=== PATIENT | female | born 1970 | race Caucasian/White ===

== ENCOUNTER → 2025-01-25 15:37 | Outpatient (REF) | payer BC, SELFPAY | LOC: RAD 15:37 | PROVIDERS: ATTENDING PHYSICIAN Surgery Vascular Surgery; FAMILY PHYSICIAN Family Medicine | DX: I65.23 Occlusion and stenosis of bilateral carotid arteries (principal) | CPT/HCPCS: 70496; 70498; Q9967 ==

== ENCOUNTER 2025-07-10 08:30 | Inpatient (IN) | payer BC, SELFPAY ==
[2025-07-07 16:47] VITALS: BP 205/91
[2025-07-07 17:09] LABS: Hematocrit 42.3 % (37.0-47.0); Hemoglobin 13.9 g/dL (12.0-16.0); Mean Corp Hgb Conc. 32.9 g/dL (33.0-37.0); Mean Corpuscular Volume 82.3 fL (81.0-99.0); Nucleated Red Blood Cells % 0 %; Platelet Count 321 10^3/uL (130-400); Red Cell Dist. Width 17.4 % (11.5-14.5)
--- NOTE | 2025-07-07 17:18 | ED.GENMED ---
History of Present Illness
General
Chief Complaint: Abdominal Symptoms
Time Seen by Provider: 07/07/25 17:13
Nursing documentation reviewed up to this point in time: agreed with
History of Present Illness
History of Present Illness:
54-year-old female presents to the ER for evaluation of vomiting for the past 48 hours. Patient reports feeling generally unwell. She reports decreased urine output. She denies abdominal pain per se. She states that she was advised to decrease
her use of Mounjaro-last dose was last Thursday, as she had labs by her primary care physician this week showing mild elevation in her lipase. Patient denies fevers or chills. No cough or cold symptoms. She does have a prior history of abdominal
surgery including appendectomy and cholecystectomy. She denies any syncope or trauma. She denies chest pain. She reports that she previously had prolonged QT while hospitalized. She states that she had Zofran at home to take but believes it was
, no significant improvement in her symptoms with this medication.
Past History
Past History
ED Past Medical History: Cancer (Thyroid), Hypercholesterolemia, NIDDM and Hypothyroidism
ED Past Surgical History: Appendectomy, Cholecystectomy and Other (Thyroidectomy)
Social History
Tobacco: Non-smoker
Drug: None
Review of Systems
Review of Systems
Allergies reviewed?: Yes
Phy Exam
Physical Exam
Physical Exam:
Patient is awake, alert, appears in no acute distress, head is NCAT, PERRL, EOMI mucous membranes tacky, conjunctiva pink, heart regular rate and rhythm without murmurs or ectopy, lungs are clear to auscultation without wheezes rales or rhonchi, no
JVD, abdomen is soft, obese, and nontender on palpation, wearing insulin pump in left lower quadrant, extremities without edema, GCS is 15 bilateral lower extremities are examined with 2+ DP pulses present, she has a punctate wound on the plantar
aspect of the right third toe, no surrounding erythema, no foot swelling noted. She has an ulceration on the plantar aspect of digit #3 on the left with scant serous drainage, toe is not swollen, foot is not swollen, no proximal streaking
Course
Orders/Labs/Results
Orders:
Orders
07/07/25 17:00
B-Hydroxybutyrate Urgent
Complete Blood Count/With Diff Urgent
Comprehensive Metabolic Panel Urgent
Lactic Acid Urgent
Lipase Urgent
07/07/25 17:32
Electrocardiogram (*1) Urgent
Reason for Study: Abdominal Pain
CT Abd/pelvis W Iv Cont Urgent
Comment:
Reason For Exam: nausea, abdominal pain
0.9% Sodium Chloride 1000 ml [Nss] 1,000 ml IV BOLUS
07/07/25 17:33
EKG- Treatment ONCE
07/07/25 17:48
Venous Blood Gas Urgent
%Oxygen/Room Air: 100
07/07/25 18:09
diazePAM [Valium Injection] 5 mg IV NOW STA
07/07/25 18:27
Urinalysis Reflex To Culture Urgent
Date Specimen was Collected: 07/07/25
Time Specimen was Collected: 18:24
Urine Microscopic Reflex Cult Urgent
07/07/25 19:03
Promethazine [Phenergan] 25 mg 0.9% Sodium Chloride 50 ml [Nss] 50 ml IV NOW
07/07/25 20:28
Insulin Aspart Pen [Novolog Flexpen] 5 units SC NOW STA
07/07/25 20:30
Blood Culture Q30M
NAEL Source: Blood/Venous
Specimen Description:
07/07/25 21:00
Blood Culture Q30M
NAEL Source: Blood/Venous
Specimen Description:
Abnormal Lab Results
07/07/25 07/07/25 07/07/25
17:00 17:48 18:27
WBC 22.1 H 10^3/uL
(4.8-10.8)
MCHC 32.9 L g/dL
(33.0-37.0)
RDW 17.4 H %
(11.5-14.5)
MPV 10.5 H fL
(7.4-10.4)
Abs Immat Gran (auto) 0.3 H 10^3/uL
(0-0.05)
Absolute Neuts (auto) 18.5 H 10^3/uL
(1.4-6.5)
Absolute Monos (auto) 1.2 H 10^3/uL
(0.1-0.6)
Immature Gran % 1.1 H %
(0-0.5)
Neutrophils % 83.7 H %
(42.2-75.2)
Lymphocytes % 9.3 L %
(20.5-51.1)
VBG pH 7.47 H
(7.32-7.43)
VBG pO2 52 H mmHg
(30-50)
VBG HCO3 29.8 H mmol/L
(22-27)
BUN 22 H mg/dl
(7-17)
Glucose 180 H mg/dl
(70-99)
AST 45 H U/L
(14-36)
ALT 49 H U/L
(0-35)
Total Protein 8.5 H g/dl
(6.3-8.2)
Lipase 360 H U/L
(23-300)
Urine Ketones 2+ A
(Negative)
Ur Occult Blood Reflex 1+ A
(Negative)
Urine Bacteria (Reflex) Few A
(Negative)
Urine Glucose 4+ A
(Negative)
Urine Albumin (Reflex) 3+ A
(Neg - Trace)
B-Hydroxybutyrate 0.77 H mmol/L
(0.02-0.27)
07/07/25 17:00
07/07/25 17:00
White blood count elevated at 22,000, glucose elevated at 180, CO2 is normal, BUN slightly elevated at 22, lipase just above normal at 360
Vital Signs
Initial and Last Documented VS:
Initial Vital Signs
Temp Pulse Resp BP Pulse Ox
97.7 F 91 20 205/91 96
07/07/25 16:47 07/07/25 16:47 07/07/25 16:47 07/07/25 16:47 07/07/25 16:47
Last Documented Vital Signs
Temp Pulse Resp BP Pulse Ox
97.7 F 95 16 177/71 100
07/07/25 16:47 07/07/25 17:57 07/07/25 17:57 07/07/25 19:06 07/07/25 17:57
MDM/Problems Addressed
Differential Diagnosis Includes:
Differential diagnosis to consider but not limited to acute pancreatitis, gastroenteritis, gastritis, along with other etiologies considered
Chronic conditions affecting care:
Insulin-dependent diabetes, GERD, anemia
*Pulse Oximetry
SaO2: 96
Oxygen Mode of Delivery: Room air
Patient hypoxic: no
*EKG
Interpreted by ED Provider?: Yes (I independently viewed and interpreted twelve-lead EKG showing normal sinus rhythm with sinus arrhythmia, rate 93, leftward axis, QT measured prolonged at 502 ms, no ST elevation, this is an abnormal tracing without
evidence for acute ischemia)
*Switchgear Repairer Interpretation
Rate: normal (I independently viewed interpreted rhythm strip from normal sinus rhythm, no ectopy)
*Critical Care Note
Total Time (30-74mins, 75-104mins- exclusive of procedures): Not Applicable
Update Note
Update Note:
Patient has a history of prolonged QT. Will obtain EKG prior to dosing antiemetic. IV fluids ordered. Patient presents at current.
Patient had minimal improvement in her nausea with Valium administration. She was given IV Phenergan. Blood count elevated. Kidney function preserved. CO2 normal, patient does not appear to be in acute DKA. CT abdomen pelvis pending. Given
intractable vomiting, patient will require admission regardless. I reviewed full patient presentation with hospitalist who accepts patient for admission.
ED Attending Note
-
Portions of this chart may have been created with voice recognition software.� Occasional wrong word or��sound alike� substitutions may have occurred due to the inherent limitations of voice recognition software.
Discharge Plan
Departure
Patient Disposition: Admit
Date of Disposition: 07/07/25
Time of Disposition: 20:33
Presentation/result/management discussed w/ accepting MD/DO: Hospitalist
Discharge Problem:
Intractable nausea and vomiting, Insulin dependent diabetes mellitus
Prescriptions:
No Action
methotrexate sodium 2.5 MG tablet
7.5 mg PO WE
pantoprazole 40 MG tablet,delayed release (DR/EC)
40 mg PO DAILY
metformin 1,000 MG tablet
1,000 mg PO BID
folic acid 1 MG tablet
1 mg PO DAILY
lisinopril-hydrochlorothiazide 1 EACH tablet
1 tab PO DAILY
levothyroxine 137 mcg Tablet
137 mcg PO DAILY
insulin aspart U-100 [Novolog U-100 Insulin aspart] 100 unit/mL Solution
1 sliding scale dose SC DIRECTED
Patient Comments:
pt has insulin pump
metoprolol succinate 25 mg Tablet Extended Release 24 Hr
25 mg PO DAILY
rosuvastatin [Crestor] 40 mg Tablet
40 mg PO QPM
Januvia
1 tab PO DAILY
Referrals:
Gianfranco Jones MD [Family Provider, Family Practice]
Interventions
Interventions:
*Risk Screen - Suicide Last Done: 07/07/25 16:49
*General Assessment Last Done: 07/07/25 16:49
*Neglect/Abuse Screening Last Done: 07/07/25 17:52
*ED COVID-19 Vaccine History Last Done: 07/07/25 17:52
*ED Influenza Vaccine History Last Done: 07/07/25 17:52
YC-Stkuga-Kvmknnyuys Assessment Last Done: 07/07/25 17:59
Discharge Date and Time
Print Language: NORTHERN IRISH
[2025-07-07 17:28] LABS: ALT (SGPT) 49 U/L (0-35); AST (SGOT) 45 U/L (14-36); Albumin 5.0 g/dl (3.5-5.0); Alkaline Phosphatase 72 U/L (38-126); Blood Urea Nitrogen 22 mg/dl (7-17); Calcium 9.0 mg/dl (8.4-10.2); Carbon Dioxide 27 mmol/L (22-30); Chloride 98 mmol/L (98-107); Glucose 180 mg/dl (70-99); Lipase 360 U/L (23-300); Potassium 3.7 mmol/L (3.5-5.1); Sodium 137 mmol/L (135-145); Total Protein 8.5 g/dl (6.3-8.2); eGFR > 60.00
[2025-07-07 17:43] VITALS: BMI 31.2
[2025-07-07] MEDS: NSS 1000 IV ×2 (17:49→22:49)
[2025-07-07 17:55] LABS: Venous Blood Gas B.E. 5.6 mmol/L (-4 to +4); Venous Blood Gas O2 Sat % 87.4 %
[2025-07-07 17:56] LABS: Venous Blood Gas O2 Therapy %Oxygen/Room Air 100
[2025-07-07 17:57] VITALS: BP 201/67
[2025-07-07] MEDS: VALIUM INJECTION 5 MG IV (18:29)
--- NOTE | 2025-07-07 18:48 | EDRN ---
Pt complains of 3 days of nausea and vomiting that has progressively gotten worse. No ill contacts. Pt has an insulin pump and says she has not been taking any of her medications except for the insulin the past few days. Pt has not been able to
eat, reports her blood sugars have been 'good.' Pt's last dose mounjaro was Thursday. She says her doctor decreased her dose because her lipase level was elevated. Pt does not think her symptoms are related to mounjaro. No cp, sob, abd pain,
fever/chills/cough, dizziness, weakness. Pt has felt generally unwell and notes decreased urine output but no burning/pain with urination.
[2025-07-07 18:59] LABS: Urine Character Clear (Clear)
[2025-07-07 19:06] VITALS: BP 177/71
--- NOTE | 2025-07-07 19:09 | EDRN ---
Called pharmacy for phenergan
[2025-07-07] MEDS: PHENERGAN 51 MG IV (19:32)
[2025-07-07 19:35] LABS: Urine Red Blood Cell 0-2 /HPF (0-2); Urine Squamous Cell 21-25 /LPF (Few)
--- NOTE | 2025-07-07 20:20 | HPS.HSE ---
Family Physician
-
Family Physician: Gianfranco Jones
Chief Complaint
-
nausea and vomiting
History of Present Illness
Patient is a 54-year-old female with past medical history significant for CAD, hyperlipidemia, Rheumatoid arthritis, IDDM, GERD and Hx thyroid cancer who presented to [facility] ED for evaluation of nausea and vomiting. Patient reports nausea and vomiting
have been persistent for approximately 48 hours. She reports having fluctuating chills and sweats yesterday but never measured temperature. Patient has insulin pump that has been functioning appropriately and states sugars have been stable at home.
Denies any cough, shortness of breath, chest pain, constipation, diarrhea or urinary symptoms.
Medical History
Past Medical History
Past Medical History: Reports Other
Additional Past Medical History:
CAD
Rheumatoid arthritis
IDDM
Hyperlipidemia
thyroid cancer
gastroesophageal reflux disease (GERD)
Lowry's esophagus
Past Surgical History: Reports Other
Additional Past Surgical History:
cholecystectomy
thyroidectomy
Laparscopic appendectomy (Dr. Bellamy) 04/19/2021
right knee arthroscopy
breast reduction
lap pelvic cyst
right thigh vein ablation 09/2020
cardiac stent x2 07/2022
cardiac cath 1 week ago
Social History
Tobacco: Former Smoker (quit in 2009)
Alcohol: Occasional
Drug: Marijuana (gummies nightly for sleep and will occasionally smoke )
Living: With Family
Employment: Not Employed
Family History
Family History: Not pertinent
Allergies / Home Medications
Allergies reflects when Allergies were last updated in [facility].
Home Medications with original date entered in [facility]
Allergy/Medication List:
Allergies
Allergy/AdvReac Type Severity Reaction Status Date / Time
Cephalosporins Allergy Hives Verified 07/07/25 16:51
latex Allergy Hives Verified 07/07/25 16:51
Penicillins Allergy Hives Verified 07/07/25 16:51
Home Medications
folic acid 1 mg tablet 1 mg PO DAILY Supplement 04/19/21
metformin 1,000 mg tablet 1,000 mg PO BID Diabetes 04/19/21
methotrexate sodium 2.5 mg tablet 7.5 mg PO WE@0800,1700 04/19/21
pantoprazole 40 mg tablet,delayed release 40 mg PO DAILY Gastrointestinal Issue 04/19/21
Patient Own Insulin Pump 1 sliding scale dose SC .VIA NOVOLOG Diabetes 07/07/25
aspirin 81 mg tablet,delayed release 81 mg PO DAILY Blood Clot Prevention/Tx 07/07/25
duloxetine 30 mg capsule,delayed release 30 mg PO DAILY Mental Health/Anxiety 07/07/25
empagliflozin 10 mg tablet (Jardiance) 10 mg PO DAILY Diabetes 07/07/25
levothyroxine 137 mcg tablet 137 mcg PO DAILY Thyroid 07/07/25
losartan 50 mg-hydrochlorothiazide 12.5 mg tablet 1 tab PO DAILY Blood Pressure 07/07/25
metoprolol succinate 25 mg tablet,extended release 24 hr 25 mg PO DAILY Heart Disease/Condition 07/07/25
rosuvastatin 40 mg tablet (Crestor) 40 mg PO QPM High Cholesterol 07/07/25
therapeutic multivitamin 1 tab PO DAILY Supplement 07/07/25
Review of Systems
-
History Source: Patient
Constitutional: Reports Chills; Denies Fever
EENT: Denies Sore Throat or Mouth Pain
Respiratory: Denies Cough or Trouble Breathing
Cardiac: Denies Chest Pain, Diaphoresis, Palpitations or Syncope
Abdomen/GI: Reports Nausea and Vomiting; Denies Abdominal Pain, Diarrhea or Constipated
: Denies Dysuria, Frequency or Urgency
Musculoskeletal: Denies Joint Pain or Joint Swelling
Skin: Denies Rash
Neurological: Denies Dizzy, Headache, Weakness or Numbness
Physical Exam
Vital Signs
Vital Signs
Temp Pulse Resp BP Pulse Ox
97.7 F 95 16 177/71 100
07/07/25 16:47 07/07/25 17:57 07/07/25 17:57 07/07/25 19:06 07/07/25 17:57
Physical Exam
General: Well Developed, Well Nourished, Comfortable, Conversant and Obese
HEENT: NormoCephalic, Moist mucous membranes, PERRLA, Nose Appears Normal and Ears Appear Normal
Respiratory: Clear and Non Labored Respirations; No Wheezes, Rales or Rhonchi
Cardiac: S1/S2 and Regular Rhythm; No Tachycardia, Murmur, Rub or Peripheral Edema
GI: Soft, Non Tender, Non Distended and Normal Bowel Sounds
Musculoskeletal: No Clubbing, No Cyanosis and No Edema
Skin: Warm and IV/Catheter Site
Neuro: Awake and AO x 3
Psych: Calm and Intact Judgment/Insight
Laboratory Results
-
07/07/25 17:00
07/07/25 17:00
Laboratory Results
Lactic Acid 2.0 mmol/L (0.7-2.0) 07/07/25 17:00
Total Bilirubin 0.9 mg/dl (0.2-1.3) 07/07/25 17:00
AST 45 U/L (14-36) H 07/07/25 17:00
ALT 49 U/L (0-35) H 07/07/25 17:00
Alkaline Phosphatase 72 U/L (38-126) 07/07/25 17:00
Lipase 360 U/L (23-300) H 07/07/25 17:00
Data Reviewed
-
Medical Tests (Nuc Med, Echo, EKG etc): Report Reviewed by me (EKG: NORMAL SINUS RHYTHM WITH SINUS ARRHYTHMIA NONSPECIFIC ST AND T WAVE ABNORMALITY PROLONGED QT)
Lab Data: Labs Reviewed by me (WBC 22.1, Neut 83.7, AST 45, ALT 49, lipase 360, b-hydroxybutyrate 0.77)
Impression/Plan
-
IMPRESSION/PLAN:
#nausea and vomiting 2/2 DKA vs. infectious process
nausea and vomiting x2 days, sugars stable with insulin pump, recent dose adjustment of Mounjaro to 7.5mg (last dose Thursday07/01/2025)
b-hydroxybutyrate 0.77
Blood Cx: pending
Abd/Pel CT: pending
EKG: NORMAL SINUS RHYTHM WITH SINUS ARRHYTHMIA
NONSPECIFIC ST AND T WAVE ABNORMALITY
PROLONGED QT
- Admit to med/surg
- IVF NSS 100cc/hr
- Consult Diabetic PLASTIC BATTERY ASSEMBLER
- NPO with sips, advance when tolerates
#IDDM
- AccuCheck AC & HS
- insulin pump
- hold metformin while acutely ill
#leukocytosis
WBC 22.1, Neut 83.7
- start empiric Zosyn
- follow blood cultures
#transaminitis
AST 45, ALT 49, lipase 360
Abd/Pel CT: pending
- trend LFTs
#CAD
#hyperlipidemia
s/p cardiac cath x2, with stent x2
- continue rosuvastatin
#hypertension
- continue lisinopril-HCTZ and metoprolol
- add IV hydralazine PRN
#Rheumatoid arthritis
- continue methotrexate
#GERD
- continue pantoprazole
#Hx thyroid cancer
s/p thyroidectomy
- continue levothyroxine
Code status: full code
DVT prophylaxis: Lovenox sq
[2025-07-07 21:10] VITALS: BP 163/66
--- NOTE | 2025-07-07 21:23 | W.PN.UPDATE ---
Update Note
Progress Note Update
I saw and examined the patient.
The ENTRY DRIVER OPERATOR's note was reviewed and I agree with the note.
Comment:
HPI: 54-year-old female with past medical history significant for CAD, hyperlipidemia, Rheumatoid arthritis, IDDM on insulin pump, GERD, Hx thyroid cancer; who presented with nausea and vomiting that started about 2 burgos ago. She also reported chills
and sweats.
Patient's insulin pump has been functioning well and she states that her sugars have been stable at home.
Denies to other symptoms.
A/P:
# nausea and vomiting although ruled out DKA with normal anion gap, possible infectious process?
# recent dose adjustment of Mounjaro to 7.5mg (last dose Thursday07/01/2025)
elevated ketone b-hydroxybutyrate at 0.77 on admission
Follow blood culture
Cover with empiric Zosyn for now
Check CRP
Follow CT AP report
s/p IVF in ED, cont IVF NSS 100cc/hr
Consult Diabetic ENTRY DRIVER OPERATOR
Zofran PRN for nausea, check EKG for QTc in the morning
# leukocytosis, reactive vs infective?
WBC 22.1
empiric Zosyn
follow blood cultures
follow CRP
# Mild transaminitis
# Mild lipase elevation
AST 45, ALT 49, lipase [address] AP
trend LFTs
NPO with IVF
# IDDM
AccuCheck, sliding scale
Cont insulin pump
DM ENTRY DRIVER OPERATOR CS
# CAD
#hyperlipidemia
# s/p cardiac cath x2, with stent x2
continue rosuvastatin
# hypertension
continue lisinopril-HCTZ and metoprolol
add IV hydralazine PRN
# Rheumatoid arthritis
continue methotrexate
# GERD
continue pantoprazole
# Hx thyroid cancer s/p thyroidectomy
continue levothyroxine
Follow TSH
Code status: full code
DVT prophylaxis: Lovenox sq
--- NOTE | 2025-07-07 21:25 | EDRN ---
TT to Mil GONZALES regarding insulin order that remains on MAR - she does not want the insulin given, was asked to cancel the order. Informed pt has sleep apnea and uses cpap but pt does not know her settings, will ask who left few
minutes ago for home. Asked about nausea medication, informed nothing was ordered due to prolonged qt. Pt asked if she can try benadryl for nausea or a scopolamine patch that pt says is used for nausea in the OR.
[2025-07-07] MEDS: COMPAZINE 10 MG IV (21:38)
[2025-07-07 21:43] LABS: C-Reactive Protein 6.90 mg/L (0.0-10.00)
--- NOTE | 2025-07-07 22:05 | PTCARENOTE ---
Patient received from the ED via stretcher. Patient walked into room with no use of assistive devices. Patient AAOx3, vital signs stable, and no complaints of pain. Call gómez within reach. Oriented to room.
[2025-07-07 22:15] VITALS: BP 119/99
[2025-07-07 22:16] VITALS: BMI 30.9
[2025-07-07] MEDS: ZOSYN 50 IV (22:49)
[2025-07-07] MEDS: ZOFRAN 4 MG IV (22:57)
[2025-07-08 00:08] LABS: Glucose - Point of Care 176 mg/dl (70-99)
[2025-07-08] MEDS: PATIENT'S OWN INSULIN PUMP 1 UNITS SC ×2 (01:33→13:20)
[2025-07-08] MEDS: ZOSYN 50 IV ×4 (03:20→21:16)
[2025-07-08] MEDS: SYNTHROID 137 MCG PO (05:56)
[2025-07-08 06:02] LABS: Glucose - Point of Care 125 mg/dl (70-99)
[2025-07-08] MEDS: PATIENT'S OWN INSULIN PUMP SC ×2 (06:05→17:34)
[2025-07-08 06:52] LABS: Hematocrit 37.4 % (37.0-47.0); Hemoglobin 12.4 g/dL (12.0-16.0); Mean Corp Hgb Conc. 33.2 g/dL (33.0-37.0); Mean Corpuscular Volume 84.2 fL (81.0-99.0); Platelet Count 298 10^3/uL (130-400); Red Cell Dist. Width 17.2 % (11.5-14.5)
[2025-07-08 07:40] VITALS: BP 141/69
[2025-07-08 07:49] LABS: ALT (SGPT) 36 U/L (0-35); AST (SGOT) 28 U/L (14-36); Albumin 4.0 g/dl (3.5-5.0); Alkaline Phosphatase 54 U/L (38-126); Blood Urea Nitrogen 15 mg/dl (7-17); Calcium 7.8 mg/dl (8.4-10.2); Carbon Dioxide 28 mmol/L (22-30); Chloride 102 mmol/L (98-107); Estimated Creatinine Clearance 85 ml/min; Glucose 129 mg/dl (70-99); Lipase 44 U/L (23-300); Potassium 3.2 mmol/L (3.5-5.1); Sodium 139 mmol/L (135-145); Total Protein 6.9 g/dl (6.3-8.2); eGFR > 60.00
[2025-07-08] MEDS: ORETIC 12.5 MG PO (08:00)
[2025-07-08] MEDS: ASPIR LOW (ENTERIC COATED) 81 MG PO (08:00)
[2025-07-08] MEDS: FARXIGA 10 MG PO (08:00)
[2025-07-08] MEDS: PROTONIX 40 MG PO (08:00)
[2025-07-08] MEDS: TOPROL XL 25 MG PO (08:01)
[2025-07-08] MEDS: FOLVITE 1 MG PO (08:01)
[2025-07-08] MEDS: COZAAR 50 MG PO (08:01)
[2025-07-08] MEDS: CYMBALTA DELAYED RELEASE 30 MG PO (08:06)
[2025-07-08 08:20] LABS: TSH 0.55 uIU/ml (0.47-4.68)
[2025-07-08 08:29] LABS: Glycohemoglobin (HgbA1c) 8.3 % (4.0-5.9)
[2025-07-08] MEDS: ZOFRAN 4 MG IV (09:20)
[2025-07-08] MEDS: NSS 1000 IV ×2 (09:20→19:49)
[2025-07-08] MEDS: KCL 270 MEQ IV (10:15)
[2025-07-08 10:30] LABS: HCG, Serum Qualitative Screen Negative
[2025-07-08 10:44] LABS: Magnesium 1.5 mg/dl (1.6-2.3)
[2025-07-08 11:10] LABS: Vitamin D, 25-OH*** 36.3 ng/mL (30-80)
[2025-07-08] MEDS: TIGAN 200 MG IM ×2 (11:27→19:46)
[2025-07-08 11:55] LABS: Glucose - Point of Care 180 mg/dl (70-99)
--- NOTE | 2025-07-08 13:46 | CM ---
patient seen at bedside with
OBS status - form explained & signed. In chart
IA completed
Lives in a 2 story home, 1 [address], flight of stairs to bedroom/bathroom
PLOF: Independent
DME: CPAP, glucometer
Has had VN in past, denies SNF
PCP: Gianfranco Jones
[facility]
PLAN: Home, no needs when stable
to transport
--- NOTE | 2025-07-08 14:13 | W.PN.HOSP.TC ---
Today's Communication/Plan
-
Transferred patient telemetry because of long QTc and also electrolyte replacements
Repeat EKG in the morning in the morning
Correct electrolytes
Clears
Assessment / Plan
Assessment / Plan
53-year-old female with nausea and vomiting
CT abdomen pelvis-no acute inflammatory process within abdomen or pelvis. Small hiatal hernia. Mild diverticulosis without acute diverticulitis. No fatty infiltration of the liver. No obstructive uropathy. 5 cm uterine fibroid increase in size
since prior examination. Incidental tiny pulmonary nodule with minimal increase compared to 2021 suggesting benign/inflammatory process.
Cardiovascular system S1-S2 appreciated, short systolic murmur at apex
Chest clear to auscultation
Abdomen soft and nontender
No pedal edema
No rashes
When asked about the heart murmur, patient gives history of bicuspid aortic valve
# Nausea and vomiting secondary to DKA versus recent dose adjustment of Mounjaro
Last dose of Mounjaro was 7.5 mg on 07/01/2025
Patient states that she has been on 10 mg in the past.
She does admit taking medical marijuana. Advised to stop as this could be also contributing to the vomiting.
Zofran changed to Tigan. Patient states that this makes her feel much better
# Diabetes hemoglobin A1c 8.3
Patient has an insulin pump, metformin, Jardiance, Mounjaro as outpatient
#Elevated ketones and beta hydroxybutyrate-May be likely secondary to vomiting and starvation ketoacidosis
# Leukocytosis-trending down
Blood cultures pending
Patient was started on Zosyn empirically
Discontinue once blood cultures are resulted
Check CXR to rule out aspiration
# Hypokalemia-replace potassium
# Hypomagnesemia- replace mag
# Transaminitis-better
# Mildly elevated lipase-likely secondary to vomiting-improved
# History of coronary disease history of cath with stent-continue aspirin, statin, metoprolol, losartan
# Hyperlipidemia-continue statin
# Rheumatoid arthritis on methotrexate as outpatient on Wednesdays. Hold with elevated white count
# Hypertension-on metoprolol, losartan hydrochlorothiazide as outpatient. Hold hydrochlorothiazide
# History of thyroid cancer status post thyroidectomy-continue levothyroxine 137 mcg daily
# Bicuspid Aortic Valve - Follows with at [facility] cariology.
# GERD-continue PPI
# Anxiety-continue duloxetine
# Diverticulosis
# Sleep apnea-continue CPAP
# Obesity with a BMI of 30
# Uterine fibroids-outpatient JIG AND FIXTURE BUILDER appointment discussed
# Fatty liver
# Ex-smoker
# DVT prophylaxis-subcutaneous Lovenox
# Full code
Transferred patient telemetry because of long QTc and also electrolyte replacements
Repeat EKG in the morning in the morning
Correct electrolytes
Clears
Went over CT scan chest x-ray with the patient
Discussed with nursing
Discussed with at bedside
Part of this note was created using voice recognition system. Occasional wrong word or��sound alike� substitutions may have inadvertently occurred due to the inherent limitations of voice recognition software. If noted kindly bring it to my
attention for correction.
Anticipated Discharge: Within 24 hours
Subjective/Interval History
-
Date of Service: July 08, 2025
Objective Data
-
Labs:
Laboratory Results
07/08/25
06:28
WBC 19.4 H
Hgb 12.4
Hct 37.4
Plt Count 298
Sodium 139
Potassium 3.2 L
Chloride 102
Carbon Dioxide 28
BUN 15
Creatinine 0.8
Glucose 129 H
Calcium 7.8 L
Total Bilirubin 0.6
AST 28
ALT 36 H
Alkaline Phosphatase 54
Vital Signs:
Vital Signs
Temp Pulse Resp BP Pulse Ox
98.7 F 98 20 141/69 94
07/08/25 07:40 07/08/25 07:40 07/08/25 07:40 07/08/25 07:40 07/08/25 07:40
I&O
07/07/25 07/08/25 07/09/25
06:59 06:59 06:59
Intake Total 718 / 718
Balance 718 / 718
[2025-07-08] MEDS: MAGNESIUM SULFATE 50 IV (14:51)
[2025-07-08 15:29] VITALS: BP 187/87
[2025-07-08 16:58] LABS: Glucose - Point of Care 143 mg/dl (70-99)
[2025-07-08] MEDS: LOVENOX 40 MG SC (17:33)
[2025-07-08] MEDS: CRESTOR 40 MG PO (17:33)
[2025-07-08 19:05] VITALS: BP 185/90
[2025-07-08] MEDS: APRESOLINE 5 MG IV (19:09)
[2025-07-08 19:59] VITALS: BP 128/60
[2025-07-08 21:24] LABS: Glucose - Point of Care 249 mg/dl (70-99)
[2025-07-08] MEDS: NOVOLOG FLEXPEN-LOW RESISTANCE 2 UNITS SC (21:24)
[2025-07-08] MEDS: BENADRYL 25 MG PO (22:16)
--- NOTE | 2025-07-08 23:00 | RESPNOTE ---
PT refused the CPAP as ordered for HS use due to nausea/vomiting. PT was made aware that if the nausea subsides and she wants to go on it, to let her RN know and we will put her on. Machine is at the bedside on .
[2025-07-08 23:42] VITALS: BP 98/56
[2025-07-09] VITALS (7 sets, daily range): BP systolic 119–196; BP diastolic 60–95; BMI 30.9
[2025-07-09] MEDS: PATIENT'S OWN INSULIN PUMP SC ×2 (00:19→04:57)
[2025-07-09] MEDS: ZOSYN 50 IV ×4 (03:09→21:31)
[2025-07-09] MEDS: TIGAN 200 MG IM ×2 (03:10→11:04)
[2025-07-09] MEDS: APRESOLINE 5 MG IV ×2 (03:50→20:12)
--- NOTE | 2025-07-09 03:57 | PTCARENOTE ---
Pt's blood pressure fluctuating throughout shift. 128/60, 98/56 and now 196/95. Pt states her B/P goes high when nauseated. Pt previously given Tigan 200mg IM at 0310. Apresoline 5mg IV given.
[2025-07-09] MEDS: BENADRYL 25 MG IV ×2 (04:22→21:35)
[2025-07-09] MEDS: NSS 1000 IV (05:23)
[2025-07-09] MEDS: SYNTHROID 137 MCG PO (05:24)
[2025-07-09 07:12] LABS: Hematocrit 40.1 % (37.0-47.0); Hemoglobin 12.7 g/dL (12.0-16.0); Mean Corp Hgb Conc. 31.7 g/dL (33.0-37.0); Mean Corpuscular Volume 86.8 fL (81.0-99.0); Nucleated Red Blood Cells % 0 %; Platelet Count 320 10^3/uL (130-400); Red Cell Dist. Width 17.7 % (11.5-14.5)
[2025-07-09 07:34] LABS: Glucose - Point of Care 211 mg/dl (70-99)
[2025-07-09 07:34] LABS: Blood Urea Nitrogen 17 mg/dl (7-17); Calcium 8.3 mg/dl (8.4-10.2); Carbon Dioxide 25 mmol/L (22-30); Chloride 99 mmol/L (98-107); Estimated Creatinine Clearance 97 ml/min; Glucose 180 mg/dl (70-99); Magnesium 2.0 mg/dl (1.6-2.3); Potassium 3.8 mmol/L (3.5-5.1); Sodium 135 mmol/L (135-145); eGFR > 60.00
[2025-07-09] MEDS: FOLVITE 1 MG PO (08:03)
[2025-07-09] MEDS: CYMBALTA DELAYED RELEASE 30 MG PO (08:03)
[2025-07-09] MEDS: COZAAR 50 MG PO (08:03)
[2025-07-09] MEDS: TOPROL XL 25 MG PO (08:03)
[2025-07-09] MEDS: FARXIGA 10 MG PO (08:03)
[2025-07-09] MEDS: ASPIR LOW (ENTERIC COATED) 81 MG PO (08:03)
[2025-07-09] MEDS: PROTONIX 40 MG PO (08:03)
[2025-07-09] MEDS: NOVOLOG FLEXPEN-LOW RESISTANCE 2 UNITS SC ×2 (08:04→21:38)
[2025-07-09] MEDS: GLUCOPHAGE 1000 MG PO ×2 (11:01→19:58)
[2025-07-09] MEDS: PEPCID 20 MG IV ×2 (11:04→19:58)
[2025-07-09] MEDS: PHENERGAN 12.5 MG PO (11:12)
[2025-07-09 11:43] LABS: Glucose - Point of Care 160 mg/dl (70-99)
[2025-07-09] MEDS: NOVOLOG FLEXPEN-LOW RESISTANCE 1 UNITS SC ×2 (11:45→16:27)
--- NOTE | 2025-07-09 14:16 | W.PN.HOSP.TC ---
Today's Communication/Plan
-
Advance diet to full liquid diet and watch
EKG reviewed by me
Repeat labs and EKG for tomorrow
Assessment / Plan
Assessment / Plan
53-year-old female with nausea and vomiting. No fall or head injury.
CT abdomen pelvis-no acute inflammatory process within abdomen or pelvis. Small hiatal hernia. Mild diverticulosis without acute diverticulitis. No fatty infiltration of the liver. No obstructive uropathy. 5 cm uterine fibroid increase in size
since prior examination. Incidental tiny pulmonary nodule with minimal increase compared to 2021 suggesting benign/inflammatory process.
Cardiovascular system S1-S2 appreciated, short systolic murmur at apex
Chest clear to auscultation
Abdomen soft and nontender
No pedal edema
No rashes
More history from the patient. States that she had a cardiac cath which did not show any obstruction or need for any stents. Patient also had an endoscopy 3 months ago as part of her gastric bypass surgery workup was unremarkable.
# Nausea and vomiting secondary to DKA versus recent dose adjustment of Mounjaro
Last dose of Mounjaro was 7.5 mg on 07/01/2025
Patient states that she has been on 10 mg in the past.
She does admit taking medical marijuana most nights. Advised to stop as this could be also contributing to the vomiting.
Zofran changed to Tigan. Give a dose of Phenergan today. If nausea and vomiting continues we will try scopolamine
Better therefore advance diet to full liquid diet
Patient had an endoscopy 3 months ago which was unremarkable per her.
# Prolonged QTc-avoid any medicines which can cause long QTc. Electrolytes corrected. Monitor on telemetry. Repeat EKG tomorrow
# Diabetes hemoglobin A1c 8.3
Patient has an insulin pump, metformin, Jardiance, Mounjaro as outpatient
#Elevated ketones and beta hydroxybutyrate-May be likely secondary to vomiting and starvation ketoacidosis
# Leukocytosis-without any clear source of infection
Blood cultures patient negative
Patient was started on Zosyn empirically
Chest x-ray without any aspiration
# Hypokalemia-replaced potassium
# Hypomagnesemia- replaced mag
# Transaminitis-better
# Mildly elevated lipase-likely secondary to vomiting-improved
# History of coronary disease history of cath with stent-continue aspirin, statin, metoprolol, losartan . Recent cardiac cath with no obstruction per patient.( Part of Gastric Bypass work up )
# Hyperlipidemia-continue statin
# Rheumatoid arthritis on methotrexate as outpatient on Wednesdays. Hold with elevated white count
# Hypertension-on Metoprolol, Losartan -Hydrochlorothiazide as outpatient. Continue
# History of thyroid cancer status post thyroidectomy-continue levothyroxine 137 mcg daily
# Bicuspid Aortic Valve - Follows with at [facility] cariology.
# GERD-continue PPI
# Anxiety-continue duloxetine
# Diverticulosis
# Sleep apnea-continue CPAP
# Obesity with a BMI of 30-patient is getting evaluated for a gastric bypass surgery at [place]
# Uterine fibroids-outpatient COMMISSIONING AGENT appointment discussed
# Fatty liver
# Ex-smoker
# DVT prophylaxis-subcutaneous Lovenox
# Full code
Discussed with nursing
Part of this note was created using voice recognition system. Occasional wrong word or��sound alike� substitutions may have inadvertently occurred due to the inherent limitations of voice recognition software. If noted kindly bring it to my
attention for correction.
Anticipated Discharge: Within 24 hours
Subjective/Interval History
-
Date of Service: July 09, 2025
Objective Data
-
Labs:
Laboratory Results
07/09/25
06:04
WBC 20.8 H
Hgb 12.7
Hct 40.1
Plt Count 320
Sodium 135
Potassium 3.8
Chloride 99
Carbon Dioxide 25
BUN 17
Creatinine 0.7
Glucose 180 H
Calcium 8.3 L
Vital Signs:
Vital Signs
Temp Pulse Resp BP Pulse Ox
98.3 F 101 18 163/75 96
07/09/25 11:30 07/09/25 11:30 07/09/25 11:30 07/09/25 11:30 07/09/25 11:30
I&O
07/08/25 07/09/25 07/10/25
06:59 06:59 06:59
Intake Total 718 / 718 2260 / 2260
Balance 718 / 718 2260 / 2260
[2025-07-09] MEDS: NSS IV (15:17)
[2025-07-09 15:26] LABS: Glucose - Point of Care 151 mg/dl (70-99)
[2025-07-09] MEDS: LOVENOX 40 MG SC (16:23)
[2025-07-09] MEDS: CRESTOR 40 MG PO (16:23)
[2025-07-09] MEDS: ORETIC 12.5 MG PO (16:25)
[2025-07-09] MEDS: TRANSDERM-SCOP 1 PATCH TRANSDERM (19:58)
[2025-07-09 21:38] LABS: Glucose - Point of Care 203 mg/dl (70-99)
--- NOTE | 2025-07-09 22:03 | RESPNOTE ---
PT is oredered to wear CPAP for HS and has been refusing due to nasea. PT was told that if it subsides and she wants to wear ot, to let her RN know and they will call us to put her on. Haroldo AN at the PT's BS.
[2025-07-10] MEDS: TIGAN 200 MG IM ×3 (01:00→19:25)
[2025-07-10] MEDS: ZOSYN 50 IV ×2 (03:39→10:04)
[2025-07-10 04:33] VITALS: BP 174/87
[2025-07-10 05:13] LABS: Glucose - Point of Care 162 mg/dl (70-99)
[2025-07-10] MEDS: SYNTHROID 137 MCG PO (05:49)
[2025-07-10 07:25] LABS: Glucose - Point of Care 167 mg/dl (70-99)
[2025-07-10 07:30] VITALS: BP 186/88
[2025-07-10 07:59] LABS: ALT (SGPT) 31 U/L (0-35); AST (SGOT) 36 U/L (14-36); Albumin 4.4 g/dl (3.5-5.0); Alkaline Phosphatase 58 U/L (38-126); Blood Urea Nitrogen 21 mg/dl (7-17); Calcium 8.5 mg/dl (8.4-10.2); Carbon Dioxide 16 mmol/L (22-30); Chloride 103 mmol/L (98-107); Estimated Creatinine Clearance 85 ml/min; Glucose 183 mg/dl (70-99); Potassium 3.8 mmol/L (3.5-5.1); Sodium 139 mmol/L (135-145); Total Protein 7.2 g/dl (6.3-8.2); eGFR > 60.00
[2025-07-10 08:02] LABS: Hematocrit 39.8 % (37.0-47.0); Hemoglobin 12.7 g/dL (12.0-16.0); Mean Corp Hgb Conc. 31.9 g/dL (33.0-37.0); Mean Corpuscular Volume 84.3 fL (81.0-99.0); Nucleated Red Blood Cells % 0 %; Platelet Count 308 10^3/uL (130-400); Red Cell Dist. Width 17.1 % (11.5-14.5)
[2025-07-10] MEDS: NOVOLOG FLEXPEN-LOW RESISTANCE 1 UNITS SC (08:04)
[2025-07-10] MEDS: ORETIC 12.5 MG PO (08:05)
[2025-07-10] MEDS: FOLVITE 1 MG PO (08:05)
[2025-07-10] MEDS: COZAAR 50 MG PO (08:05)
[2025-07-10] MEDS: TOPROL XL 25 MG PO (08:05)
[2025-07-10] MEDS: ASPIR LOW (ENTERIC COATED) 81 MG PO (08:05)
[2025-07-10] MEDS: PROTONIX 40 MG PO (08:05)
[2025-07-10] MEDS: CYMBALTA DELAYED RELEASE 30 MG PO (08:05)
[2025-07-10] MEDS: GLUCOPHAGE 1000 MG PO (08:06)
[2025-07-10] MEDS: APRESOLINE 5 MG IV (08:06)
[2025-07-10] MEDS: PEPCID 20 MG IV ×2 (08:07→19:30)
--- NOTE | 2025-07-10 08:50 | PN.DE.MGMTRT ---
Insulin Management
- -
07/10/2025: Diabetes Management Consult
54 year old female with PMH: CAD, HLD, HTN, RA, IDDM, GERD and Hx thyroid cancer who presented to [facility] for evaluation of cyclical nausea and vomiting. 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 Of note, she takes
marijuana daily for anxiety.
She reports having fluctuating chills and sweats but never measured temperature. She generally uses an insulin Pump, Tandem T-Slim with NovoLog and Dexcom for diabetes management at home. States her pump was taken off on Thursday in PM when she run
of of insulin, otherwise her blood sugars have been stable at home.
Pt awake, alert, oriented, resting in bed, has no complaints, able to discuss diabetes care plan.
She is in the process of preparing for bariatric surgery and has lost ~10 lbs.
She routinely sees Endo Dr. Kumar at [place], states her A1C was 7.8% months ago, current A1C is 8.3%, Cr 0.5, eGFR>60.
State she was on 3 units of basal insulin via pump, also taking Metformin 1000 BID, Jardiance 10mg daily and Mounjaro 7.5mg weekly, last dose was on 07/01.
Nurse reports pt had an episode of emesis this morning, tho pt reports feeling better now and would like to try chicken noodle soup-Dr. Scanlon made aware.
Yesterday glucose was 151 to 211, her diet has been advanced to 1800 mathieu, pre-lunch blood sugar was 209, received 2 units of corrective insulin
Will start Lantus 12 units @ HS and AC NovoLog 3 units. Cont low corrective insulin with meals
Will closely monitor glucose trend and further adjust insulin dose if necessary.
Diabetes History
- -
Type of Diabetes: 2 requiring insulin
Pre-Admission Diabetes Regimen
07/10/25
07:18
Creatinine 0.8
Lab Results
Hemoglobin A1c 8.3 % (4.0-5.9) H 07/08/25 06:28
Insulin Pump Settings
IP Diabetes Regimen
07/09/25 07/09/25 07/09/25
11:41 15:24 21:37
Glucose
POC Glucose 160 H 151 H 203 H
07/10/25 07/10/25 07/10/25
05:11 07:18 07:24
Glucose 183 H
POC Glucose 162 H 167 H
Meal type: Lunch
Meal type: Breakfast
Amount consumed: 5%
Amount consumed: 0
Patient Education
[2025-07-10] MEDS: TRANDATE 10 MG IV (10:03)
[2025-07-10 11:17] VITALS: BP 151/79
[2025-07-10 11:26] LABS: Glucose - Point of Care 209 mg/dl (70-99)
[2025-07-10 11:30] VITALS: BP 166/72
[2025-07-10] MEDS: NOVOLOG FLEXPEN-LOW RESISTANCE 2 UNITS SC ×3 (12:19→22:06)
--- NOTE | 2025-07-10 13:24 | W.PN.HOSP.TC ---
Today's Communication/Plan
-
advance diet
monitor blood pressures
appreciate DM TUBE ROLLER
hold metformin and HCTZ
possible DC tomorrow
Assessment / Plan
Assessment / Plan
53-year-old female with nausea and vomiting.
CT abdomen pelvis-no acute inflammatory process within abdomen or pelvis. Small hiatal hernia. Mild diverticulosis without acute diverticulitis. No fatty infiltration of the liver. No obstructive uropathy. 5 cm uterine fibroid increase in size
since prior examination. Incidental tiny pulmonary nodule with minimal increase compared to 2021 suggesting benign/inflammatory process.
# Nausea and vomiting likely secondary to recent dose increase of Mounjaro (recently increased from 5 to 7.5mg; had been on 10mg prior) versus cyclic vomiting from THC (uses in evenings) versus gastroenteritis
Patient had an endoscopy 3 months ago which was unremarkable per her.
Last dose of Mounjaro was 7.5 mg on 07/01/2025
Patient wants to stop Mounjaro and THC at DC
IM Tigan PRN, Sopolamine patch initiated
-nausea improved today, advance diet
-stop IV Zosyn as CT without inflammatory process
# Prolonged QTc-avoid any medicines which can cause long QTc
# Diabetes hemoglobin A1c 8.3
Patient has an insulin pump, metformin, Jardiance, Mounjaro as outpatient
-appreciate DM TUBE ROLLER consult
-hold metformin, with low Bicarb today
Metabolic acidosis
-BGL 180 and symptoms improving, patient received IVF through yesterday evening and urinating frequently
-may be response to metformin? hold metformin, monitor PO intake
-repeat labs tomorrow
#Elevated ketones and beta hydroxybutyrate-May be likely secondary to vomiting and starvation ketoacidosis
# Leukocytosis-without any clear source of infection
suspect stress response
stop IV Zosyn as no e/o infection
# Hypokalemia-replaced potassium
# Hypomagnesemia- replaced mag
# Transaminitis- resolved
# Mildly elevated lipase-likely secondary to vomiting-improved
# History of coronary disease history of cath with stent-continue aspirin, statin, metoprolol, losartan . Recent cardiac cath with no obstruction per patient.( Part of Gastric Bypass work up )
# Hyperlipidemia-continue statin
# Rheumatoid arthritis on methotrexate as outpatient on Wednesdays. Hold with elevated white count
# Hypertension-on Metoprolol, Losartan -Hydrochlorothiazide as outpatient. Continue
-hold HCTZ
-monitor BP's, required IV Labetalol this morning
-patient states blood pressure high in setting of nausea
# History of thyroid cancer status post thyroidectomy-continue levothyroxine 137 mcg daily
# Bicuspid Aortic Valve - Follows with at [facility] cariology.
# GERD-continue PPI
# Anxiety-continue duloxetine
# Diverticulosis
# Sleep apnea-continue CPAP
# Obesity with a BMI of 30-patient is getting evaluated for a gastric bypass surgery at [place]
# Uterine fibroids-outpatient BINGO MANAGER appointment discussed
# Fatty liver
# Ex-smoker
# DVT prophylaxis-subcutaneous Lovenox
# Full code
Discussed with nursing
Anticipated Discharge: 24 - 48 hours
Subjective/Interval History
-
Date of Service: July 10, 2025
feeling better
less nausea and wants to eat chicken noodle soup
Objective Data
-
Labs:
Laboratory Results
07/10/25
07:18
WBC 18.8 H
Hgb 12.7
Hct 39.8
Plt Count 308
Sodium 139
Potassium 3.8
Chloride 103
Carbon Dioxide 16 L
BUN 21 H
Creatinine 0.8
Glucose 183 H
Calcium 8.5
Total Bilirubin 0.8
AST 36
ALT 31
Alkaline Phosphatase 58
Vital Signs:
Vital Signs
Temp Pulse Resp BP Pulse Ox
97.3 F 88 16 166/72 97
07/10/25 11:30 07/10/25 11:30 07/10/25 11:30 07/10/25 11:30 07/10/25 11:30
I&O
07/09/25 07/10/25 07/11/25
06:59 06:59 06:59
Intake Total 2259 / 0 940 / 940
Balance 2259 / 2259 940 / 940
Review of Systems
-
History Source: Patient
All other systems: Reviewed and negative
Physical Exam
-
General: No Apparent Distress
HEENT: PERRLA
Respiratory: Clear to Auscultation; Negative Wheezes
Cardiac: Regular Rhythm and S1/S2
GI: Soft and Nontender
Musculoskeletal: No Edema
Skin: Warm and Dry; Negative Rash
Neuro: AO x 3
Psych: Calm
Data Reviewed
-
Diagnostic Radiology: Report Reviewed by me
Labs: Labs Reviewed by me
--- NOTE | 2025-07-10 13:52 | CM ---
CM following for discharge planning. Dr. Scanlon anticipates possible discharge to home tomorrow.
Pt's will transport home when medically cleared.
--- NOTE | 2025-07-10 15:32 | W.DCSUMMARY ---
Discharge Summary
Discharge Data
Date of Admission: 07/10/25
Date of Discharge: 07/11/25
-
Pending Results: No
Hospital Course
Discharging Physician : Dr. Trini Scanlon
Disposition : Home
Primary care physician : Dr. Gianfranco Jones
Principal Discharge diagnosis : Nausea and Vomiting secondary to Mounjaro adverse effect versus gastroenteritis versus THC and cyclic vomiting syndrome
Hospital Course :
Ms. Jacqui Schultz is a 54 yo woman with hx CAD, HLD, RA, IDDM, GERD, thyroid cancer s/p thyroidectomy on supplementation presents to the ER for evaluation of nausea and vomiting over the past 48 hours. She had recently increased her Mounjaro dose
from 5 to 7.5mg. She also reports evening use of medical marijuana.
Triage vitals significant for hypertension 205/91. She was afebrile. WBC 22. CT A/P without acute inflammatory process. She was started on empiric IV Zosyn and admitted to medicine. Over the next couple of days she was given symptomatic
management for nausea. Given prolonged QTc, anti-emetic choices limited. She was given a Scopolamine patch with some relief. She was also trialed on topical Capsaicin cream given possibility of cannabis hyperemesis syndrome which she states
completed resolved her nausea. As cultures remained negative, IV Zosyn stopped and elevated WBC continued to decline. She is discharged with a script for Scopolamine and Capsaicin cream. She is also given several doses of low dose Ativan to help
with anxiety and nausea. She will follow up closely with her outpatient providers. Repeat CBC to be obtained in several days to ensure resolution of leukocytosis.
Etiology of nausea 2/2 Mounjaro dose increase versus gastroenteritis versus cyclic vomiting syndrome. She will now stop Mounjaro and THC use.
Patient's insulin pump ran out of battery in the hospital, replaced with subQ insulin in meantime and she will resume her insulin pump at home.
Given patient has been on and tolerated Metformin and Jardiance for years, OK to resume these medications on discharge. She had mild metabolic acidosis in hospital but this was more likely from GI upset, resolved at time of discharge. Repeat BMP
to be obtained on Thursday.
Her BP was elevated during hospital stay in setting of nausea and discomfort. She will monitor her blood pressure recordings at home, 90 minutes after morning medications and report results to outpatient providers.
Time spent on discharge was 35 minutes.
Important imaging findings :
Abdomen/Pelvis CT 07/07/25
IMPRESSION:
No acute inflammatory process within the abdomen or pelvis. No bowel obstruction. Small sliding hiatal hernia.
Mild diverticulosis without acute diverticulitis.
No fatty infiltration of liver.
No obstructive uropathy.
5 cm uterine fibroid having increased in size since prior examination.
Incidental tiny pulmonary nodules with minimal increase in size compared to 2021, suggesting a benign/inflammatory process.
Procedure findings :
Discharge Plan
-
Patient Disposition: Home (Routine Discharge)
Discharge Diagnosis/Procedures: nausea/vomiting
Diet: Diabetic, Carb Controlled
Activity: As tolerated
Driving Restrictions: As prior to admission
Bathing Restrictions: None
Blood Work: BMP on Thursday07/14/25
Referrals:
Gianfranco Jones MD [Family Provider, Family Practice] - in less than 1 week
Additional Discharge Medication Instructions: Stop Mounjaro
Stop THC use
Prescriptions:
New
scopolamine base 1 mg over 3 days Patch 3 Day
1 patch transdermal Q72H Qty: 2 0RF
capsaicin 0.075 % cream
1 applic topical TID PRN (Reason: nausea) Qty: 57 0RF
lorazepam [Ativan] 0.5 mg tablet
0.25 mg PO HS PRN (Reason: anxiety, nausea) Qty: 2 0RF
Continued
methotrexate sodium 2.5 MG tablet
7.5 mg PO WE@0800,1700
pantoprazole 40 MG tablet,delayed release (DR/EC)
40 mg PO DAILY
metformin 1,000 MG tablet
1,000 mg PO BID
folic acid 1 MG tablet
1 mg PO DAILY
levothyroxine 137 mcg Tablet
137 mcg PO DAILY
metoprolol succinate 25 mg Tablet Extended Release 24 Hr
25 mg PO DAILY
rosuvastatin [Crestor] 40 mg Tablet
40 mg PO QPM
Jardiance 10 mg Tablet
10 mg PO DAILY
therapeutic multivitamin Tablet
1 tab PO DAILY
aspirin 81 mg Tablet,Delayed Release (Dr/Ec)
81 mg PO DAILY
losartan-hydrochlorothiazide 50-12.5 mg Tablet
1 tab PO DAILY
duloxetine 30 mg Capsule,Delayed Release(Dr/Ec)
30 mg PO DAILY
Patient Own Insulin Pump
1 sliding scale dose SC .VIA NOVOLOG
Patient Comments:
patient stopped mounjaro,(last took 07/01/25)
Discharge Orders:
Discharge Patient (As Directed); Ordered 07/11/25
Ordered By: Trini Scanlon
Discharge Date and Time
Print Language: MALAY
[2025-07-10 15:54] LABS: Glucose - Point of Care 216 mg/dl (70-99)
[2025-07-10 16:00] VITALS: BP 167/80
[2025-07-10] MEDS: CRESTOR 40 MG PO (16:45)
[2025-07-10] MEDS: LOVENOX 40 MG SC (16:45)
[2025-07-10] MEDS: TYLENOL 650 MG PO (19:56)
[2025-07-10 21:57] LABS: Glucose - Point of Care 241 mg/dl (70-99)
[2025-07-10] MEDS: LANTUS 0.12 UNITS SC (22:09)
[2025-07-10 22:33] VITALS: BP 121/57
[2025-07-11] MEDS: ATIVAN 0.25 MG PO (02:38)
[2025-07-11] MEDS: TIGAN 200 MG IM ×2 (02:44→08:49)
[2025-07-11] MEDS: BENADRYL 25 MG IV (03:15)
[2025-07-11] MEDS: SYNTHROID 137 MCG PO (05:34)
[2025-07-11 07:45] LABS: Hematocrit 41.2 % (37.0-47.0); Hemoglobin 13.2 g/dL (12.0-16.0); Mean Corp Hgb Conc. 32.0 g/dL (33.0-37.0); Mean Corpuscular Volume 86.0 fL (81.0-99.0); Nucleated Red Blood Cells % 0 %; Platelet Count 275 10^3/uL (130-400); Red Cell Dist. Width 16.4 % (11.5-14.5)
[2025-07-11 07:47] LABS: Glucose - Point of Care 229 mg/dl (70-99)
[2025-07-11 08:01] VITALS: BP 177/76
--- NOTE | 2025-07-11 08:06 | PN.DE.MGMTRT ---
Insulin Management
- -
07/11/2025: Diabetes Management Consult Follow up
54 year old female with c/o cyclical nausea and vomiting for ~ 2 days. PMH: CAD, HLD, HTN, RA, IDDM, GERD and Hx thyroid cancer Of note, she takes marijuana daily for anxiety. She reports having fluctuating chills and sweats but never measured
temperature. Prior to admission was using Tandem Mobiinsulin pump with NovoLog and Dexcom also taking Metformin 1000 BID, Jardiance 10mg daily and Mounjaro 7.5mg weekly, last dose was on 07/01State her pump was taken off on Thursday in PM when
she ran of of insulin, otherwise her blood sugars have been stable at home. A1C is 8.3%, Cr 0.5, eGFR>60.
Pt awake, alert, oriented, resting in bed, has no complaints, able to discuss diabetes care plan. She is in the process of preparing for bariatric surgery and has lost ~10 lbs. She routinely sees Endo Dr. Kumar at [place], Uses Tandem Mobi.
State she was on 3 units of basal insulin via pump, but thinks overnight the rate goes down but her pump is so she cannot check rates.
Yesterday glucose was 167 to 241, her diet has been advanced to 1800 mathieu. Received Lantus 12 units @ HS and AC NovoLog 3 units with low corrective insulin with meals. Appetite is improving.
Will increase lantus to 15 units @ HS and AC novolog to 5 units with low corrective.
Will closely monitor glucose trend and further adjust insulin dose if necessary.
Discussed with nurse.
Diabetes History
- -
Type of Diabetes: 2 requiring insulin
Pre-Admission Diabetes Regimen
Lab Results
Hemoglobin A1c 8.3 % (4.0-5.9) H 07/08/25 06:28
Insulin Pump Settings
IP Diabetes Regimen
07/10/25 07/10/25 07/10/25
15:52 21:55
POC Glucose 209 H 216 H 241 H
07/11/25
07:46
POC Glucose 229 H
Meal type: Dinner
Meal type: Lunch
Meal type: Breakfast
Amount consumed: 5%
Amount consumed: 50%
Amount consumed: 5%
Patient Education
[2025-07-11 08:34] LABS: Blood Urea Nitrogen 22 mg/dl (7-17); Calcium 8.7 mg/dl (8.4-10.2); Carbon Dioxide 22 mmol/L (22-30); Chloride 99 mmol/L (98-107); Estimated Creatinine Clearance 97 ml/min; Glucose 214 mg/dl (70-99); Potassium 3.8 mmol/L (3.5-5.1); Sodium 134 mmol/L (135-145); eGFR > 60.00
[2025-07-11] MEDS: CYMBALTA DELAYED RELEASE 30 MG PO (08:34)
[2025-07-11] MEDS: NOVOLOG FLEXPEN-LOW RESISTANCE 2 UNITS SC ×2 (08:34→12:47)
[2025-07-11] MEDS: TOPROL XL 25 MG PO (08:35)
[2025-07-11] MEDS: PEPCID 20 MG IV (08:35)
[2025-07-11] MEDS: COZAAR 50 MG PO (08:35)
[2025-07-11] MEDS: PROTONIX 40 MG PO (08:35)
[2025-07-11] MEDS: ASPIR LOW (ENTERIC COATED) 81 MG PO (08:35)
[2025-07-11] MEDS: FOLVITE 1 MG PO (08:38)
[2025-07-11 12:31] LABS: Glucose - Point of Care 226 mg/dl (70-99)
--- NOTE | 2025-07-11 12:38 | W.PN.HOSP.TC ---
Addendum entered and electronically signed by Trini Scanlon MD 07/11/25 14:03:
capsaicin cream helpful for patient, she feels ready for discharge
OK for DC
Original Note:
Today's Communication/Plan
-
patient asking about discharge, OK for discharge if tolerates lunch
Assessment / Plan
Assessment / Plan
53-year-old female with nausea and vomiting.
CT abdomen pelvis-no acute inflammatory process within abdomen or pelvis. Small hiatal hernia. Mild diverticulosis without acute diverticulitis. No fatty infiltration of the liver. No obstructive uropathy. 5 cm uterine fibroid increase in size
since prior examination. Incidental tiny pulmonary nodule with minimal increase compared to 2021 suggesting benign/inflammatory process.
# Nausea and vomiting likely secondary to recent dose increase of Mounjaro (recently increased from 5 to 7.5mg; had been on 10mg prior) versus cyclic vomiting from THC (uses in evenings) versus gastroenteritis
Patient had an endoscopy 3 months ago which was unremarkable per her.
Last dose of Mounjaro was 7.5 mg on 07/01/2025
Patient wants to stop Mounjaro and THC at OK
IM Tigan PRN, Sopolamine patch initiated
-nausea improved today, advance diet
-IV Zosyn stopped
-OK to DC if patient tolerates lunch
-we can trial capsaicin cream
# Prolonged QTc-avoid any medicines which can cause long QTc
# Diabetes hemoglobin A1c 8.3
Patient has an insulin pump, metformin, Jardiance, Mounjaro as outpatient
-appreciate DM HOSPITALITY SPECIALIST consult
-hold oral meds and Mounjaro at OK
Metabolic acidosis
improved today, hold Metformin
#Elevated ketones and beta hydroxybutyrate-May be likely secondary to vomiting and starvation ketoacidosis
# Leukocytosis-without any clear source of infection
suspect stress response
stop IV Zosyn as no e/o infection
# Hypokalemia-replaced potassium
# Hypomagnesemia- replaced mag
# Transaminitis- resolved
# Mildly elevated lipase-likely secondary to vomiting-improved
# History of coronary disease history of cath with stent-continue aspirin, statin, metoprolol, losartan . Recent cardiac cath with no obstruction per patient.( Part of Gastric Bypass work up )
# Hyperlipidemia-continue statin
# Rheumatoid arthritis on methotrexate as outpatient on Wednesdays. Hold with elevated white count
# Hypertension-on Metoprolol, Losartan -Hydrochlorothiazide as outpatient. Continue
-hold HCTZ
-monitor BP's, required IV Labetalol this morning
-patient states blood pressure high in setting of nausea
-continue to monitor BP at home
# History of thyroid cancer status post thyroidectomy-continue levothyroxine 137 mcg daily
# Bicuspid Aortic Valve - Follows with at [facility] cariology.
# GERD-continue PPI
# Anxiety-continue duloxetine
# Diverticulosis
# Sleep apnea-continue CPAP
# Obesity with a BMI of 30-patient is getting evaluated for a gastric bypass surgery at [place]
# Uterine fibroids-outpatient WIRE TWISTER appointment discussed
# Fatty liver
# Ex-smoker
# DVT prophylaxis-subcutaneous Lovenox
# Full code
Discussed with nursing
Anticipated Discharge: Within 24 hours
Subjective/Interval History
-
Date of Service: July 11, 2025
she is overall feeling better but still has intermittent nausea
asking to go home later
wants to try capsaicin cream ([place] about it from roommate)
Objective Data
-
Labs:
Laboratory Results
07/11/25
07:07
WBC 15.9 H
Hgb 13.2
Hct 41.2
Plt Count 275
Sodium 134 L
Potassium 3.8
Chloride 99
Carbon Dioxide 22
BUN 22 H
Creatinine 0.7
Glucose 214 H
Calcium 8.7
Vital Signs:
Vital Signs
Temp Pulse Resp BP Pulse Ox
98.3 F 98 18 177/76 96
07/11/25 08:01 07/11/25 08:35 07/11/25 08:01 07/11/25 08:35 07/11/25 08:01
I&O
07/10/25 07/11/25 07/12/25
06:59 06:59 06:59
Intake Total 940 / 940 1560 / 1560
Balance 940 / 940 1560 / 1560
Review of Systems
-
History Source: Patient
All other systems: Reviewed and negative
Physical Exam
-
General: No Apparent Distress
HEENT: PERRLA
Respiratory: Clear to Auscultation; Negative Wheezes
Cardiac: Regular Rhythm and S1/S2
GI: Soft and Nontender
Musculoskeletal: No Edema
Skin: Warm and Dry; Negative Rash
Neuro: AO x 3
Psych: Calm
Data Reviewed
-
Diagnostic Radiology: Report Reviewed by me
Labs: Labs Reviewed by me
[2025-07-11] MEDS: NOVOLOG FLEXPEN 5 UNITS SC (12:47)
[2025-07-11] MEDS: ZOSTRIX-HP 0.075% CREAM 1 APPLIC TOPICAL (12:48)
[2025-07-11 12:54] VITALS: BP 156/80
--- NOTE | 2025-07-11 14:15 | W.DS.TRANS ---
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
-
Discharge Instructions:
Discharge Diagnosis/Procedures nausea/vomiting
Diet Diabetic, Carb Controlled
Activity As tolerated
Driving Restrictions As prior to admission
Bathing Restrictions None
Instructions:
Stand-Alone Forms:
Changes to Home Medications: Yes
Discharge Medications:
DC Medications w/original date entered in [facility]
folic acid 1 mg tablet 1 mg PO DAILY Supplement 04/19/21
metformin 1,000 mg tablet 1,000 mg PO BID Diabetes 04/19/21
methotrexate sodium 2.5 mg tablet 7.5 mg PO WE@0800,1700 04/19/21
pantoprazole 40 mg tablet,delayed release 40 mg PO DAILY Gastrointestinal Issue 04/19/21
Patient Own Insulin Pump 1 sliding scale dose SC .VIA [employer] Diabetes 07/07/25
aspirin 81 mg tablet,delayed release 81 mg PO DAILY Blood Clot Prevention/Tx 07/07/25
duloxetine 30 mg capsule,delayed release 30 mg PO DAILY Mental Health/Anxiety 07/07/25
empagliflozin 10 mg tablet (Jardiance) 10 mg PO DAILY Diabetes 07/07/25
levothyroxine 137 mcg tablet 137 mcg PO DAILY Thyroid 07/07/25
losartan 50 mg-hydrochlorothiazide 12.5 mg tablet 1 tab PO DAILY Blood Pressure 07/07/25
metoprolol succinate 25 mg tablet,extended release 24 hr 25 mg PO DAILY Heart Disease/Condition 07/07/25
rosuvastatin 40 mg tablet (Crestor) 40 mg PO QPM High Cholesterol 07/07/25
therapeutic multivitamin 1 tab PO DAILY Supplement 07/07/25
capsaicin 0.075 % topical cream 1 applic topical TID PRN nausea #57 grams 07/11/25
lorazepam 0.5 mg tablet (Ativan) 0.25 mg (1/2 x 0.5 mg) PO HS PRN anxiety, nausea #2 tabs 07/11/25
scopolamine base 1 mg over 3 days transdermal patch 1 patch transdermal Q72H #2 ea 07/11/25
Home Medication Changes
addition of Scopolamine
Capsaicin cream
4 doses 0.25 Ativan
STOP MOUNJARO
STOP MEDICAL MARIJUANA
Pending Results: No
--- NOTE | 2025-07-11 14:30 | CM ---
Patient has been medically cleared for discharge to home with no additional skilled services[facility]
--- NOTE | 2025-07-11 14:33 | PTCARENOTE ---
Patient for discharge. Discharge instructions reviewed with patient, including new medications and indications. IV removed. Patient's daughter coming to pick her up for discharge. Transport will be called to wheel patient down to main lobby for
discharge.
== END 2025-07-11 15:23 | disposition home or self-care (01) | DRG 392 ==
LOC: 4 WEST ACU 08:30
PROVIDERS: Emergency Medicine; Hospitalist; Nurse Practitioner Family; ADMITTING PHYSICIAN Internal Medicine; ATTENDING PHYSICIAN Student in an Organized Health Care Education/Training Program; EMERGENCY PHYSICIAN Emergency Medicine; FAMILY PHYSICIAN Family Medicine
DX: R11.16 Cannabis hyperemesis syndrome (principal); E87.20 Acidosis, unspecified; T38.3X5A Adverse effect of insulin and oral hypoglycemic [antidiabetic] drugs, initial encounter; R11.15 Cyclical vomiting syndrome unrelated to migraine; K52.9 Noninfective gastroenteritis and colitis, unspecified; Z87.891 Personal history of nicotine dependence; Z79.4 Long term (current) use of insulin; E11.9 Type 2 diabetes mellitus without complications; I25.10 Atherosclerotic heart disease of native coronary artery without angina pectoris; I10 Essential (primary) hypertension; M06.9 Rheumatoid arthritis, unspecified; K21.9 Gastro-esophageal reflux disease without esophagitis; E87.6 Hypokalemia; E83.42 Hypomagnesemia; F41.9 Anxiety disorder, unspecified; E66.9 Obesity, unspecified; Z68.30 Body mass index [BMI] 30.0-30.9, adult; Z85.850 Personal history of malignant neoplasm of thyroid; F12.99 Cannabis use, unspecified with unspecified cannabis-induced disorder
CPT/HCPCS: 71046; 74177; 80048; 80053; 81003; 81015; 82010; 82306; 82805; 82962; 83036; 83605; 83690; 83735; 84443; 84703; 85025; 85027; 86140; 87040; 93005; 94660; 96361; 96374; 96375; 99285; Q9967

== ENCOUNTER 2025-07-14 10:01 | Emergency (ER) | payer BC, SELFPAY ==
[2025-07-14 10:13] VITALS: BP 168/85
[2025-07-14 10:58] LABS: Hematocrit 42.7 % (37.0-47.0); Hemoglobin 14.2 g/dL (12.0-16.0); Mean Corp Hgb Conc. 33.3 g/dL (33.0-37.0); Mean Corpuscular Volume 80.6 fL (81.0-99.0); Nucleated Red Blood Cells % 0 %; Platelet Count 249 10^3/uL (130-400); Red Cell Dist. Width 16.9 % (11.5-14.5)
[2025-07-14 11:14] LABS: ALT (SGPT) 60 U/L (0-35); AST (SGOT) 42 U/L (14-36); Albumin 4.8 g/dl (3.5-5.0); Alkaline Phosphatase 63 U/L (38-126); Blood Urea Nitrogen 19 mg/dl (7-17); Calcium 8.9 mg/dl (8.4-10.2); Carbon Dioxide 26 mmol/L (22-30); Chloride 94 mmol/L (98-107); Glucose 203 mg/dl (70-99); Lipase 108 U/L (23-300); Potassium 3.3 mmol/L (3.5-5.1); Sodium 134 mmol/L (135-145); Total Protein 8.1 g/dl (6.3-8.2); eGFR > 60.00
--- NOTE | 2025-07-14 12:29 | ED.GENMED ---
History of Present Illness
General
Chief Complaint: Abdominal Symptoms
Source: patient
Exam Limitations: none
Time Seen by Provider: 07/14/25 12:06
Nursing documentation reviewed up to this point in time: agreed with
History of Present Illness
History of Present Illness:
Patient is a 54-year-old female with past medical history of cyclical vomiting syndrome CAD IDDM GERD thyroid cancer status post thyroidectomy, CAD, stents recent cath 2 weeks ago which was negative presents to the ER for nausea vomiting weakness.
Patient was recently admitted July 10 to July 11 secondary to either Mounjaro adverse effect versus gastritis versus THC and cyclical vomiting syndrome. At that time she did have her Mounjaro increased from 5 to 7.5 mg she had a CAT scan at
that time which was negative for any acute inflammatory process. Patient was treated with scopolamine patch because of prolonged QTc and she was discharged with scopolamine and capsaicin cream. She was also given several doses of Ativan to help
with anxiety and nausea.
she denies any chest pain shortness of breath
Past History
Past History
ED Past Medical History: Cancer (Thyroid), Hypercholesterolemia, NIDDM and Hypothyroidism
ED Past Surgical History: Appendectomy, Cholecystectomy and Other (Thyroidectomy)
Social History
Tobacco: Non-smoker
Drug: None
Phy Exam
General Physical Exam
General Presentation: no apparent distress
General age: appears stated age
General Skin: warm and dry
General Habitus: normal
General Mental: alert
General Hydration: appears well hydrated
Cardiovascular Exam
Cardiovascular Exam: regular rate/rhythm, no murmur and normal peripheral pulses
Pulmonary Exam
Pulmonary Exam: lungs clear and no respiratory distress
Neurological Exam
Neurological Exam: alert and oriented x3
Musculoskeletal Exam
Musculoskeletal Exam: full ROM
Skin Exam
Skin Exam: normal color and warm/dry
Psychiatric Exam
Psychiatric Exam: normal mood/affect
Course
Orders/Labs/Results
Orders:
Orders
07/14/25 10:16
Electrocardiogram (*1) Urgent
Reason for Study: QTc Monitoring
EKG- Treatment ONCE
07/14/25 10:32
Complete Blood Count/With Diff Urgent
Comprehensive Metabolic Panel Urgent
Lipase Urgent
Magnesium Urgent
Comment: ADD ON
07/14/25 12:46
0.9% Sodium Chloride 1000 ml [Nss] 1,000 ml IV BOLUS
droPERidol [Inapsine] 1.25 mg IV NOW STA
07/14/25 13:47
Add On- LAB Urgent
Tests Added?: magesium
07/14/25 16:12
Potassium Chloride [KCl] 40 meq PO NOW STA
07/14/25 17:55
Trimethobenzamide [Tigan] 200 mg IM NOW STA
Abnormal Lab Results
07/14/25
10:32
WBC 16.6 H 10^3/uL
(4.8-10.8)
MCV 80.6 L fL
(81.0-99.0)
MCH 26.8 L pg
(27.0-31.0)
RDW 16.9 H %
(11.5-14.5)
MPV 10.7 H fL
(7.4-10.4)
Abs Immat Gran (auto) 0.1 H 10^3/uL
(0-0.05)
Absolute Neuts (auto) 13.2 H 10^3/uL
(1.4-6.5)
Absolute Monos (auto) 1.3 H 10^3/uL
(0.1-0.6)
Neutrophils % 79.4 H %
(42.2-75.2)
Lymphocytes % 11.2 L %
(20.5-51.1)
Sodium 134 L mmol/L
(135-145)
Potassium 3.3 L mmol/L
(3.5-5.1)
Chloride 94 L mmol/L
(98-107)
BUN 19 H mg/dl
(7-17)
Glucose 203 H mg/dl
(70-99)
AST 42 H U/L
(14-36)
ALT 60 H U/L
(0-35)
07/14/25 10:32
07/14/25 10:32
Vital Signs
Initial and Last Documented VS:
Initial Vital Signs
Temp Pulse Resp BP Pulse Ox
98.6 F 109 16 168/85 100
07/14/25 10:13 07/14/25 10:13 07/14/25 10:13 07/14/25 10:13 07/14/25 10:13
Last Documented Vital Signs
Temp Pulse Resp BP Pulse Ox
98.6 F 82 18 118/60 97
07/14/25 10:13 07/14/25 18:23 07/14/25 18:23 07/14/25 18:23 07/14/25 18:23
Rf Design Engineer consulted with Physician
Rf Design Engineer consulted with physician?: Yes
Name of Physician Consulted: Anmol
MDM/Problems Addressed
Differential Diagnosis Includes:
Not limited to cyclical vomiting syndrome dehydration electrolyte abnormality
MDM/Problems Addressed:
As documented patient is a 54-year-old female with significant past medical history including cyclical vomiting unclear from increasing Mounjaro or medical marijuana/versus cyclical vomiting syndrome. Patient was discharged July 11 3 days ago
and has had vomiting since. She is a type I diabetic and has not had her meds for over 24 hours because of symptoms. She feels very weak and her legs were giving out. She was seen by family doctor and sent here to the ER. Patient presents awake
alert she is mildly tachycardic white count elevated 16,000 however white count has been elevated since the during previous admission. Potassium is mildly low at 3.3 BUN 19 creatinine 0.8 glucose 203 LFTs minimally elevated. Case discussed
with ED for will give fluids and try droperidol
Patient feeling better after droperidol and fluids fact she was able to drink fluids, red renan and had small amount of crackers. Case reviewed with ED physician with elevated QTc will plan to discharge on Tigan. Patient was given a dose of Tigan
IM here in the ER. Since dose was sent to patient's pharmacy. Will have patient follow-up with her family doctor in the next 4 days and have her potassium level rechecked as well. She was given an oral dose of potassium as documented above.
Chronic conditions affecting care:
History of similar vomiting the past possible related to Mounjaro cyclical vomiting or marijuana use
*Pulse Oximetry
SaO2: 99
Oxygen Mode of Delivery: Room air
Patient hypoxic: no
*Critical Care Note
Total Time (30-74mins, 75-104mins- exclusive of procedures): Not Applicable
Data Reviewed
Review of Other/Old Records Reveals: Labs and Discharge Summary
ED Attending Note
-
Portions of this chart may have been created with voice recognition software.� Occasional wrong word or��sound alike� substitutions may have occurred due to the inherent limitations of voice recognition software.
Discharge Plan
Departure
Patient Disposition: Home (Routine Discharge)
Date of Disposition: 07/14/25
Time of Disposition: 17:06
Patient with high blood pressure during this ER visit?: Yes
Condition: Fair
Covid-19: Not Applicable
Discharge Problem:
Nausea and vomiting
Instructions: Nausea and Vomiting, Adult (DC), BLOOD PRESSURE
Prescriptions:
New
trimethobenzamide 300 mg capsule
300 mg PO Q8H PRN (Reason: nausea and vomiting) Qty: 10 0RF
No Action
methotrexate sodium 2.5 MG tablet
7.5 mg PO WE@0800,1700
pantoprazole 40 MG tablet,delayed release (DR/EC)
40 mg PO DAILY
metformin 1,000 MG tablet
1,000 mg PO BID
folic acid 1 MG tablet
1 mg PO DAILY
levothyroxine 137 mcg Tablet
137 mcg PO DAILY
metoprolol succinate 25 mg Tablet Extended Release 24 Hr
25 mg PO DAILY
rosuvastatin [Crestor] 40 mg Tablet
40 mg PO QPM
Jardiance 10 mg Tablet
10 mg PO DAILY
therapeutic multivitamin Tablet
1 tab PO DAILY
aspirin 81 mg Tablet,Delayed Release (Dr/Ec)
81 mg PO DAILY
losartan-hydrochlorothiazide 50-12.5 mg Tablet
1 tab PO DAILY
duloxetine 30 mg Capsule,Delayed Release(Dr/Ec)
30 mg PO DAILY
Patient Own Insulin Pump
1 sliding scale dose SC .VIA NOVOLOG
Patient Comments:
patient stopped mounjaro,(last took 07/01/25)
scopolamine base 1 mg over 3 days Patch 3 Day
1 patch transdermal Q72H Qty: 2 0RF
capsaicin 0.075 % cream
1 applic topical TID PRN (Reason: nausea) Qty: 57 0RF
lorazepam [Ativan] 0.5 mg tablet
0.25 mg PO HS PRN (Reason: anxiety, nausea) Qty: 2 0RF
Referrals:
Gianfranco Jones MD [Family Provider, Family Practice]
Activity Restrictions/Additional Instructions:
As discussed a prescription for Tigan was sent to your pharmacy. 300 mg every 8 hours as needed. Please stop scopolamine patch. Closely follow-up with a family doctor in the next several days for reevaluation. Also as discussed please review
with your cardiac nurse practitioner prolonged QTc this is not new but persistent from your previous admission as well. Your potassium was mildly low at 3.3 you were given 1 dose of oral potassium here in the ER please have this all rechecked in the next week.
Once he feels well enough to eat solid foods please increase foods high in potassium. Please closely follow-up with your family doctor in the next 1 days for reevaluation of your symptoms and return if any worsening of symptoms.
Interventions
Interventions:
*Risk Screen - Suicide Last Done: 07/14/25 10:13
*General Assessment Last Done: 07/14/25 11:28
*Neglect/Abuse Screening Last Done: 07/14/25 11:28
*ED- Fall Risk Assessment Last Done: 07/14/25 11:28
*ED COVID-19 Vaccine History Last Done: 07/14/25 15:24
*ED Influenza Vaccine History Last Done: 07/14/25 15:24
*Nursing Disposition Last Done: 07/14/25 18:25
EM-Hqjvtv-Kmopmnhkzk Assessment Last Done: 07/14/25 11:28
Discharge Date and Time
Discharge Date/Time: 07/14/25 18:26
Print Language: CHADIAN
[2025-07-14] MEDS: NSS 1000 IV (13:40)
[2025-07-14] MEDS: INAPSINE 1.25 MG IV (13:41)
[2025-07-14 14:18] LABS: Magnesium 1.8 mg/dl (1.6-2.3)
[2025-07-14 15:23] VITALS: BP 112/54
[2025-07-14] MEDS: KCL 40 MEQ PO (16:24)
[2025-07-14] MEDS: TIGAN 200 MG IM (17:57)
[2025-07-14 18:23] VITALS: BP 118/60
== END 2025-07-14 18:26 | disposition home or self-care (01) ==
LOC: EMR 10:01
PROVIDERS: Student in an Organized Health Care Education/Training Program; EMERGENCY PHYSICIAN Emergency Medicine; FAMILY PHYSICIAN Family Medicine
DX: R11.2 Nausea with vomiting, unspecified (principal); R03.0 Elevated blood-pressure reading, without diagnosis of hypertension; E10.9 Type 1 diabetes mellitus without complications; I25.10 Atherosclerotic heart disease of native coronary artery without angina pectoris; E78.00 Pure hypercholesterolemia, unspecified; E89.0 Postprocedural hypothyroidism; K21.9 Gastro-esophageal reflux disease without esophagitis; Z79.4 Long term (current) use of insulin; Z79.84 Long term (current) use of oral hypoglycemic drugs; Z79.82 Long term (current) use of aspirin; Z96.41 Presence of insulin pump (external) (internal); Z95.5 Presence of coronary angioplasty implant and graft; Z85.850 Personal history of malignant neoplasm of thyroid
CPT/HCPCS: 99284; 96374; 96372; 80053; 83690; 83735; 85025; 93005; J1790